=== PATIENT | male | born 1980 | race Caucasian/White ===

== ENCOUNTER 2019-04-01 12:41 | Emergency (ER) | payer BC, MEDICARE ==
[2019-04-01 12:58] VITALS: BP 137/85
--- NOTE | 2019-04-01 14:08 | UC ---
General HPI - HPI Summary HPI Summary: Pleasant 38 yo gentleman c/o episodes heart racing, wanted to get checked. Does have hx anxiety attack but most recent has been about 3 years. However, on Thu (today is Thursday), he was at work and felt sudden dizziness describes as the room spinning out of control, afraid he would fall off the chair. Shortly thereafter felt heart racing. Sx occurred later that evening and again yesterday. No n/v/d. No sob /cp. Feels ok now. No recent illness. No rash. Did not vomit. - History of Current Complaint Chief Complaint: UCDizziness Stated Complaint: DIZZY,RACING HEART Time Seen by Provider: 04/01/19 14:07 Hx Obtained From: Patient Pain Intensity: 0 - Allergy/Home Medications Allergies/Adverse Reactions: Allergies Allergy/AdvReac Type Severity Reaction Status Date / Time No Known Allergies Allergy Verified 04/01/19 12:58 PMH/Surg Hx/FS Hx/Imm Hx Previously Healthy: Yes - Surgical History Surgical History: Yes Surgery Procedure, Year, and Place: WISDOM TOOTH EXTRACTION, LIPOMA OF BACK REMOVED.. - Family History Known Family History: Positive: Other - thyroid - Social History Alcohol Use: Occasionally Substance Use Type: None Smoking Status (MU): Former Smoker Review of Systems All Other Systems Reviewed And Are Negative: Yes Constitutional: Positive: Other - see hpi Skin: Positive: Other - see hpi Eyes: Positive: Other - see hpi ENT: Positive: Other - see hpi Respiratory: Positive: Other - see hpi Cardiovascular: Positive: Other - see hpi Gastrointestinal: Positive: Other - see hpi Motor: Positive: Other - see hpi Neurovascular: Positive: Other - see hpi Musculoskeletal: Positive: Other: - see hpi Neurological: Positive: Other - see hpi Psychological: Positive: Other - see hpi Is Patient Immunocompromised?: No Physical Exam Triage Information Reviewed: Yes Appearance: Well-Appearing - sitting up, conversing easily, Well-Nourished Vital Signs: Initial Vital Signs Temp 98.3 F 04/01/19 12:55 Pulse 97 04/01/19 12:55 Resp 18 04/01/19 12:55 BP 137/85 04/01/19 12:55 Pulse Ox 100 04/01/19 12:55 Vital Signs Reviewed: Yes Eye Exam: Normal ENT: Positive: Pharyngeal erythema, TM dull - TMs bilat dull, guy. Intact. Neck exam: Normal Neck: Positive: Supple, Nontender, No Lymphadenopathy Respiratory Exam: Normal Respiratory: Positive: Chest non-tender, Lungs clear, Normal breath sounds, No respiratory distress, No accessory muscle use Cardiovascular Exam: Normal Cardiovascular: Positive: RRR, No Murmur, Pulses Normal, Brisk Capillary Refill Abdominal Exam: Normal Abdomen Description: Positive: Nontender Musculoskeletal Exam: Normal - gait steady, moves x 4 ext's Neurological Exam: Normal - nonfocal with the exception of sx reported in hpi Psychological Exam: Normal - conversing easily and appropriately. nad Skin Exam: Normal - nondiaphoretic. no visible or reported rash Course/Dx - Course Course Of Treatment: EKG nsr at 79 bpm. Will f/u with pcp, will call on Thursday. Aware to go to the ED for repeat, worse or new sx. Rx meclizine, d/w pt. Blood work ordered. cbc, cmp, magn, tsh Questions as posed answered to the best of my ability. - Diagnoses Provider Diagnosis: Dizziness, Vertigo, Serous otitis media Discharge - Sign-Out/Discharge Documenting (check all that apply): Patient Departure All imaging exams completed and their final reports reviewed: No Studies - Discharge Plan Condition: Stable Disposition: HOME Prescriptions: Meclizine TAB* [Antivert 12.5 TAB*] 25 mg PO TID PRN #30 tab PRN Reason: Dizziness Patient Education Materials: Heart Palpitations (ED), Vertigo (ED), Serous Otitis Media (ED) Forms: *Work Release Referrals: No Primary Care Phys,NOPCP [Primary Care Provider] - Additional Instructions: Please follow up with your doctor at [facility], call on Thursday to schedule an appiontment for the next 1-2 weeks. Meanwhile, please seek medical attention for worse or new problems. Hydrate. Blood work - cbc (complete blood count) cmp (comprehensive metabolic profile) magnesium level tsh (thyroid) - Billing Disposition and Condition Condition: STABLE Disposition: Home
[2019-04-01 18:56] LABS: ABS Monocytes 0.5 10^3/ul (0-0.8); ABS Neutrophils 4.3 10^3/ul (1.5-7.7); Eosinophil % 0.5 %; Hematocrit 48 % (42-52); Hemoglobin 16.1 g/dL (14.0-18.0); Lymphocyte % 28.5 %; Mean Corpuscular HGB Conc 34 g/dL (31-36); Mean Corpuscular Hemoglobin 33 pg (27-31); Mean Corpuscular Volume 97 fL (80-94); Mean Platelet Volume 8.8 fL (7.4-10.4); Nucleated Red Blood Cells % 0.1; Platelet Count 320 10^3/uL (150-450); Red Blood Count 4.93 10^6 /uL (4.18-5.48); Red Cell Distribution Width 13 % (10.5-15); White Blood Count 6.8 10^3/uL (3.5-10.8)
[2019-04-01 19:00] LABS: Albumin 4.7 g/dL (3.2-5.2); Calcium 9.8 mg/dL (8.6-10.3); Magnesium 2.3 mg/dL (1.9-2.7); Potassium 4.3 mmol/L (3.5-5.0); Total Bilirubin 0.7 mg/dL (0.2-1.0)
[2019-04-01 19:06] LABS: Albumin/Globulin Ratio 1.7 (1-3); BUN/Creatinine Ratio 13.7 (8-20); EGFR African American 97.9 (>60); EGFR Non-African American 80.9 (>60); Globulin 2.7 g/dL (2-4); Total Protein 7.4 g/dL (6.4-8.9)
[2019-04-01 19:22] LABS: TSH (Thyroid Stimulating Horm) 1.05 mcIU/mL (0.34-5.60)
== END 2019-04-01 14:53 | disposition home or self-care (01) ==
LOC: UCCORT 12:41
DX: R42 Dizziness and giddiness (principal); H65.93 Unspecified nonsuppurative otitis media, bilateral; R00.2 Palpitations; Z87.891 Personal history of nicotine dependence
CPT/HCPCS: 36415; 80053; 83735; 84443; 85025; 93005; 99212; G0463